=== PATIENT | female | born 1985 | race Caucasian/White ===

== ENCOUNTER 2021-10-26 11:47 | Emergency (ER) | payer BC ==
[2021-10-26] MEDS ORDERED: Iopamidol 370 76% 100 ML VIAL FS ONE (11:48)
[2021-10-26] MEDS ORDERED: Ondansetron PF 4 MG/2 ML Vial ONE (12:25)
[2021-10-26 12:36] LABS: Hemoglobin 14.1 g/dL (12.0-16.0); Mean Corpuscular HGB CONC 34.2 g/dL (32.0-36.0); Mean Corpuscular Hemoglobin 32.3 pg (27.0-31.0); Mean Corpuscular Volume 94.4 fL (78.0-98.0); Mean Platelet Volume 8.6 fL (7.4-10.4); Platelet Count 315 thou/uL (130-400); RBC Distribution Width 12.3 % (11.5-14.5); Red Blood Cell (RBC) Count 4.38 mill/uL (4.20-5.40); White Blood Cell (WBC) Count 15.5 thou/uL (4.8-10.8)
[2021-10-26 12:51] LABS: ALT (SGPT) 17 U/L (8-55); AST (SGOT) 20 U/L (5-34); Albumin 5.1 g/dL (3.5-5.0); Alkaline Phosphatase 58 U/L (40-110); Anion Gap 18 mmol/L (10-20); BUN (Urea Nitrogen) 14 mg/dL (7.0-18.7); Bilirubin, Total 0.8 mg/dL (0.2-1.2); Calc. Creatinine Clearance 0 mL/min (70-130); Calcium 10.6 mg/dL (7.8-10.44); Carbon Dioxide 25 mmol/L (22-29); Chloride 99 mmol/L (98-107); Globulin 3.5 g/dL (2.4-3.5); Glucose 118 mg/dL (70-105); Protein, Total 8.6 g/dL (6.0-8.3); Sodium 139 mmol/L (136-145)
[2021-10-26 12:52] LABS: Band 3 % (5-11); Lymphocytes 9 % (21-51); MDiff Complete? YES; Monocytes 5 % (0-10); Neutrophil 82 % (42-75); Reactive Lymphocytes 1 % (0-10)
[2021-10-26] MEDS ORDERED: Promethazine HCl 25 MG/ML VIAL ONE (12:56)
[2021-10-26 13:27] LABS: Bilirubin Negative (Negative); Blood, Urine Negative (Negative); Clarity Clear (Clear); Glucose, Urine (Dipstick) Negative (Negative); Ketone, Urine 40 mg/dL (Negative); Leukocyte Trace (Negative); Nitrite Positive (Negative); Protein, Urine (Dipstick) 30 mg/dL (Neg-Trace); Specific Gravity, Urine 1.015 (1.005-1.030); Urobilinogen 0.2 mg/dL (Less than 2); pH, Urine 7.5 (5.0-9.0)
[2021-10-26] MEDS ORDERED: Potassium Chloride 20 MEQ TAB ONE (13:38)
[2021-10-26 13:42] LABS: Amphetamine Not Detected (NotDetected); Barbiturates Screen Not Detected (NotDetected); Benzodiazepine Screen Not Detected (NotDetected); Cocaine Metabolite Screen Not Detected (NotDetected); Methadone Not Detected (NotDetected); Methamphetamine Not Detected (NotDetected); Opiate Screen Not Detected (NotDetected); Oxycodone Screen Not Detected (NotDetected); Phencyclidine (PCP) Not Detected (NotDetected); THC/Cannabinoid Screen Detected (NotDetected); Tricyclic Screen Not Detected (NotDetected)
[2021-10-26 13:43] LABS: Bacteria/HPF 3+ HPF (None Seen); Epithelial Cast 0-3 LPF (None Seen); Medtox Control Line Valid? VALID (VALID); RBC/HPF 0-3 HPF (0-3); Squamous Epithelial 0-3 HPF (0-3); Transitional Epithelial 0-3 HPF (None Seen)
== END 2021-10-26 14:17 | disposition home or self-care (01) ==
LOC: BURERS 11:47
DX: K52.9 Noninfective gastroenteritis and colitis, unspecified (principal); N39.0 Urinary tract infection, site not specified; E87.6 Hypokalemia; N83.201 Unspecified ovarian cyst, right side; K44.9 Diaphragmatic hernia without obstruction or gangrene; F17.210 Nicotine dependence, cigarettes, uncomplicated
CPT/HCPCS: 74177; 80053; 80306; 81003; 81015; 85025; 96374; 96375; J2405; J2550; Q9967